=== PATIENT | female | born 1990 | race American Indian/Alaskan Native ===

== ENCOUNTER 2021-05-26 11:26 | Emergency (ER) | payer OTHER ==
[2021-05-26] MEDS ORDERED: BACITRACIN ZINC OINT 28.4 GM TP ONE (12:27)
[2021-05-26] MEDS ORDERED: IBUPROFEN 600 MG TAB PO ONE (12:30)
[2021-05-26 12:31] VITALS: BP 117/78
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
== END 2021-05-26 14:51 | disposition home or self-care (01) ==
LOC: ED 11:26
DX: T22.112A Burn of first degree of left forearm, initial encounter (principal); T31.0 Burns involving less than 10% of body surface; M79.641 Pain in right hand; I10 Essential (primary) hypertension; Z98.890 Other specified postprocedural states; Z79.899 Other long term (current) drug therapy; Z88.8 Allergy status to other drugs, medicaments and biological substances; Y04.8XXA Assault by other bodily force, initial encounter; X08.8XXA Exposure to other specified smoke, fire and flames, initial encounter; Y93.89 Activity, other specified; Y92.89 Other specified places as the place of occurrence of the external cause; Y99.8 Other external cause status
CPT/HCPCS: 99283